=== PATIENT | male | born 1990 | race Caucasian/White ===

== ENCOUNTER 2021-08-28 20:18 | Emergency (ER) | payer MEDICAID, OTHER ==
--- NOTE | 2021-08-28 21:10 | NUR ---
CALLED FOR TRIAGE. NO ANSWER
--- NOTE | 2021-08-28 21:21 | NUR ---
CALLED FOR TRIAGE. NO ANSWER
--- NOTE | 2021-08-28 21:27 | NUR ---
CALLED FOR TRIAGE. NO ANSWER
== END 2021-08-28 21:30 | disposition left against medical advice (07) ==
LOC: ER 20:27
DX: Z02.89 Encounter for other administrative examinations (principal); Z53.21 Procedure and treatment not carried out due to patient leaving prior to being seen by health care provider